=== PATIENT | female | born 1950 | race Caucasian/White ===

== ENCOUNTER 2018-07-16 12:28 | Emergency (ER) | payer OTHER, MEDICARE ==
[~2018-07-16] VITALS: Ht 165.1 cm; Wt 89.3 kg
[2018-07-16 14:23] LABS: HEMATOCRIT 43.8 % (36.0-46.0); HEMOGLOBIN 14.5 G/DL (11.9-15.5); MCH 28.6 PG (29.0-34.0); MCHC 33.1 G/DL (30.0-36.0); MCV 86.4 FL (83-99); PLATELET COUNT 199 K/uL (156-360); RBC DIS.WIDTH-CV 13.3 % (11.8-14.6); RBC DIS.WIDTH-SD 41.6 % (39-53); RED BLOOD COUNT 5.07 M/uL (3.80-5.20); WHITE BLOOD COUNT 5.2 K/uL (4.1-10.2)
[2018-07-16 14:31] LABS: ALBUMIN 4.1 g/dL (3.2-4.8); CHLORIDE 102 mEq/L (99-109); POTASSIUM 3.7 mEq/L (3.7-5.4); SODIUM 137 mEq/L (136-147)
[2018-07-16 14:33] LABS: GLUCOSE 111 mg/dL (70-99)
[2018-07-16 14:34] LABS: TOTAL PROTEIN 7.5 g/dL (6.4-8.3)
[2018-07-16 14:35] LABS: TOTAL BILIRUBIN 0.7 mg/dL (0.0-1.0)
[2018-07-16 14:36] LABS: APPEARANCE SL.HAZY ((CLEAR)); BILIRUBIN NEGATIVE; BLOOD NEGATIVE; COLOR YELLOW ((YELLOW)); GLUCOSE (STRIP) NEGATIVE; KETONES 5; LEUKOCYTES LARGE; NITRITE NEGATIVE; PROTEIN (STRIP) 30; SPECIFIC GRAVITY 1.018 (1.000-1.030)
[2018-07-16 14:37] LABS: ALKALINE PHOSPHATASE 87 IU/L (3-129); CREATININE 0.8 mg/dL (0.6-1.3); GFR ESTIMATE (CALCULATED) > 59 mL/min/
[2018-07-16 14:39] LABS: AST (GOT) 29 IU/L (2-34); UREA NITROGEN (BUN) 12 mg/dL (9-23)
[2018-07-16 14:42] LABS: ALT (GPT) 26 IU/L (3-49)
[2018-07-16 15:02] LABS: BACTERIA RARE /HPF; EPITHELIAL CELLS 1+ /HPF; MUCUS TRACE /LPF; RED BLOOD CELLS 0-5 /HPF (0-5); WHITE BLOOD CELLS 15-20 /HPF (0-5)
[2018-07-16 15:12] LABS: TROP-I INTERPRETATION NEGATIVE; TROPONIN-I < 0.01 ng/mL (0.0-0.30)
[2018-07-16] MEDS ORDERED: KEFLEX500 MG PO (16:27)
[2018-07-16] MEDS ORDERED: TYLENOL EXTRA500 MG PO (16:27)
[2018-07-16] MEDS ORDERED: ZOFRAN ODT4 MG PO (16:29)
[2018-07-16 17:21] VITALS: BP 134/63
== END 2018-07-16 17:30 | disposition home or self-care (01) ==
LOC: EME 12:28
PROVIDERS: Nurse Practitioner Family
DX: N39.0 Urinary tract infection, site not specified (principal); R51 Headache; E86.0 Dehydration; E11.9 Type 2 diabetes mellitus without complications; I10 Essential (primary) hypertension; Z90.710 Acquired absence of both cervix and uterus; Z90.49 Acquired absence of other specified parts of digestive tract; Z88.8 Allergy status to other drugs, medicaments and biological substances
CPT/HCPCS: 70450; 71046; 80053; 81003; 84484; 85027; 93005; 99281; 99285; J0696; J1200; J1885; J2765; J7030